=== PATIENT | female | born 1965 | race Caucasian/White ===

== ENCOUNTER 2023-03-07 06:18 | Day surgery (SDC) | payer OTHER ==
[~2023-03-07] VITALS: Ht 170.2 cm; Wt 100.0 kg
[~2023-03-07 06:18] MED LIST: SODIUM CHLORIDE 0.9% 1,000 ML ONE
[2023-03-07] MEDS ORDERED: BENZOCAINE 20% 50 MCG/SPRAY 57 GM TP ONE (06:19)
[2023-03-07] MEDS ORDERED: LIDOCAINE 2% 11 ML JELLY TP ONE (06:19)
[2023-03-07] MEDS ORDERED: LIDOCAINE 4% 50 ML SOLUTION TP ONE (06:19)
[2023-03-07] MEDS ORDERED: ALBUTEROL SULFATE 2.5 MG/0.5 ML NEB SOLUTION NEB ONE (06:19)
[2023-03-07] MEDS ORDERED: CITA-144 PO (07:42)
[2023-03-07] MEDS ORDERED: DOCU-412 PO (07:42)
[2023-03-07] MEDS ORDERED: LORA10TA7 PO (07:43)
[2023-03-07] MEDS ORDERED: LISI-894 PO (07:43)
[2023-03-07] MEDS ORDERED: ATOG30TA PO (07:44)
[2023-03-07] MEDS ORDERED: SUMA100T21 PO (07:51)
[2023-03-07] MEDS ORDERED: FAMO20 PO (07:51)
[2023-03-07] MEDS ORDERED: DULO-113 PO (07:52)
[2023-03-07] MEDS ORDERED: DICY20TA95 PO (07:53)
[2023-03-07] MEDS ORDERED: MONT-35 PO (07:53)
[2023-03-07] MEDS ORDERED: GABA-1181 PO (07:53)
[2023-03-07] MEDS ORDERED: SUCR1ORA15 PO (07:54)
[2023-03-07] MEDS ORDERED: SENN-160 PO (07:55)
[2023-03-07] MEDS ORDERED: PANT-31 PO (07:55)
[2023-03-07] MEDS ORDERED: AZEL137S8 NASAL (07:56)
[2023-03-07] MEDS ORDERED: FLUT12AE21 IH (07:57)
[2023-03-07] MEDS ORDERED: ALBU18HF12 IH (07:59)
[2023-03-07 08:00] LABS: GLUCOMETER DEV NAME(LOC) SDS.; GLUCOSE,POINT OF CARE 89 MG/DL (70-110)
[2023-03-07] MEDS ORDERED: MIDAZOLAM HCL 2 MG/2 ML VIAL ONE (08:03)
[2023-03-07] MEDS ORDERED: FentaNYL CITRATE PF 100 MCG/2 ML VIAL ONE (08:03)
[2023-03-07 09:00] VITALS: PULSE 62; RESP 14; O2SAT 100
[2023-03-07] MEDS ORDERED: SODIUM CHLORIDE 0.9% 1,000 ML IV ONE (09:00)
[2023-03-07] MEDS ORDERED: MethylPREDNISolone SOD SUCC 125 MG/2 ML VIAL IVP ONE (09:00)
[2023-03-07] MEDS ORDERED: MethylPREDNISolone SOD SUCC 125 MG/2 ML VIAL ONE (09:07)
== END 2023-03-07 10:50 | disposition home or self-care (01) ==
LOC: SURGERY 06:18
PROVIDERS: ATTEND Internal Medicine Critical Care Medicine
DX: B37.0 Candidal stomatitis (principal); J38.4 Edema of larynx; Z79.899 Other long term (current) drug therapy; I10 Essential (primary) hypertension; Z98.890 Other specified postprocedural states
CPT/HCPCS: 31623; 82962; 87206; 87101; 87220; 87070; 88108; 87186; 31624; 94640; 71045; 87015; J3010; J2250; J2930; Q9967; J7030; J7613; Z7610